=== PATIENT | male | born 1940 | race Caucasian/White ===

== ENCOUNTER 2016-10-23 10:02 | Day surgery (SDC) | payer OTHER ==
--- NOTE | ~2016-10-23 | EGD ---
EGD REPORT [facility] [address] [place] [address] NAME: REFUGIO DO : 42 [place]US [place] [facility] [place] [id number] AGE: 75 ADM/REG DATE : 10/23/16 MR#: [id number] REPORT SERV DATE: 10/23/16 DICTATED BY: KANNAN TREJO DATE: 10/23/16 REPORT STATUS : Draft TRANSCRIBED BY: [facility] DATE: 10/23/16 End[facility] Center Patient Name: Refugio Do Date of : 1940 Attending MD: ALOK TREJO MD Procedure Date No Time: 10/23/2016 Procedure: Colonoscopy Indications: Iron deficiency anemia Referring MD: MAYI FIELDS Medicines: See the Anesthesia note for documentation of the administered medications Complications: No immediate complications. Estimated blood loss: None. Procedure: Pre-Anesthesia Assessment: - Prior to the procedure, a History and Physical was performed, and patient medications and allergies were reviewed. The patient's tolerance of previous anesthesia was also reviewed. The risks and benefits of the procedure and the sedation options and risks were discussed with the patient. All questions were answered, and informed consent was obtained. Prior Anticoagulants: The patient has taken aspirin, last dose was 2 days prior to procedure. After reviewing the risks and benefits, the patient was deemed in satisfactory condition to undergo the procedure. After I obtained informed consent, the scope was passed under direct vision. Throughout the procedure, the patient's blood pressure, pulse, and oxygen saturations were monitored continuously. The PCF [id number] was introduced through the anus and advanced to the cecum, identified by appendiceal orifice and ileocecal valve. The ileocecal valve, appendiceal orifice and rectum were photographed. The entire colon was examined. The colonoscopy was performed without difficulty. The patient tolerated the procedure well. The quality of the bowel preparation was adequate. Findings: The perianal and digital rectal examinations were normal. Non-bleeding internal hemorrhoids were found during retroflexion and were Grade I (internal hemorrhoids that do not prolapse). No other significant abnormalities were identified in a careful examination of the remainder of the colon. Impression: - Non-bleeding internal hemorrhoids. EGD REPORT [address] [address] NAME: REFUGIO DO : 42 STATUS : REG [facility]#: [id number] AGE: 75 ADM/REG DATE : 10/23/16 MR#: [id number] REPORT SERV DATE: 10/23/16 DICTATED BY: KANNAN TREJO DATE: 10/23/16 REPORT STATUS : Draft TRANSCRIBED BY: [employer] DATE: 10/23/16 Recommendation: - Patient has a contact number available for emergencies. The signs and symptoms of potential delayed complications were discussed with the patient. Return to normal activities tomorrow. Written discharge instructions were provided to the patient. - Regular diet. - Discharge patient to home. - Continue present medications. - Repeat colonoscopy is not recommended for surveillance. Procedure Code(s): --- Professional --- 59812, Colonoscopy, flexible, proximal to splenic flexure; diagnostic, with or without collection of specimen(s) by brushing or washing, with or without colon decompression (separate procedure) Diagnosis Code(s): --- Professional --- K64.0, First degree hemorrhoids D50.9, Iron deficiency anemia, unspecified CPT copyright 2013 [employer]. All rights reserved. The codes documented in this report are preliminary and upon cotton header review may be revised to meet current compliance requirements. ALOK TREJO MD 10/23/2016 1:38 PM This report has been signed electronically. Number of Addenda: 0 Note Initiated On: 10/23/2016 1:15 PM Scope Withdrawal Time 0 hours 7 minutes 3 seconds
[~2016-10-23 10:02] MED LIST: ACTOS30 PO; AMARYL2 PO; ASAB PO; JANUVIA100 MG PO; LEVOTH PO; LEVOTHYROXIN50 MCG PO; LIPITOR40 PO; MULTI-VIT HP PO; PRIN10 PO; SAW PALMETT2 PO; ZANTAC 150 PO
== END 2016-10-23 23:59 | disposition home or self-care (01) ==
LOC: DMU 10:02
PROVIDERS: Internal Medicine Gastroenterology
PROC: 0DJD8ZZ Inspection of Lower Intestinal Tract, Via Natural or Artificial Opening Endoscopic (ICD-10-PCS; principal; 2016-10-23 12:00)
DX: K64.0 First degree hemorrhoids (principal); D50.9 Iron deficiency anemia, unspecified; E11.9 Type 2 diabetes mellitus without complications; E03.9 Hypothyroidism, unspecified; E78.00 Pure hypercholesterolemia, unspecified; K21.9 Gastro-esophageal reflux disease without esophagitis; K44.9 Diaphragmatic hernia without obstruction or gangrene; Z88.0 Allergy status to penicillin; Z79.82 Long term (current) use of aspirin; Z79.899 Other long term (current) drug therapy; Z98.890 Other specified postprocedural states; Z90.49 Acquired absence of other specified parts of digestive tract
CPT/HCPCS: 82962